=== PATIENT | female | born 1980 | race Two or more races ===

== ENCOUNTER 2019-02-12 00:14 | Emergency (ER) | payer SELFPAY ==
[~2019-02-12] VITALS: Ht 162.6 cm; Wt 130.6 kg
[2019-02-12 01:02] LABS: Basophils # (auto) 0 uL; Basophils % (auto) 0.4 % (0.0-2.0); Eosinophils # (auto) 0.2 uL; Eosinophils % (auto) 1.8 % (0.0-7.0); Hemoglobin 13.1 g/dL (12.2-16.2); Lymphocytes # (auto) 2.5 uL; Lymphocytes % (auto) 19.6 % (10.0-50.0); Mean Corpuscular Hemoglobin 28.6 pg (28.0-32.0); Mean Corpuscular Hgb Conc. 33.6 g/dL (32.0-36.0); Mean Corpuscular Volume 85.2 fL (80.0-100.0); Monocytes # (auto) 0.8 uL; Monocytes % (auto) 6.1 % (0.0-12.0); Neutrophils % (auto) 72.1 % (37.0-80.0); Nucleated Red Blood Cells % 0.1 %; Platelet Count (auto) 292 10^3/uL (140-450); Red Blood Cells 4.58 10^6/uL (4.0-5.20); White Blood Cell 12.5 10^3/uL (4.4-10.8)
[2019-02-12 01:06] LABS: Urine Bacteria FEW /hpf (None Seen); Urine Blood 2+ /uL (Negative); Urine Specific Gravity 1.009 (1.001-1.035); Urine WBC 1 /hpf (0 - 5)
[2019-02-12 01:20] LABS: Albumin 3.5 g/dL (3.4-5.0); BUN/Creatinine Ratio 11.9; Calcium 9.1 mg/dL (8.5-10.1); Potassium 3.9 mmol/L (3.5-5.1)
[2019-02-12 01:28] LABS: Bilirubin, Total 0.2 mg/dL (0.2-1.0); Total Protein 7.6 g/dL (6.4-8.2)
[2019-02-12 05:21] VITALS: BP 128/68
== END 2019-02-12 06:16 | disposition home or self-care (01) ==
LOC: ER 00:20
DX: O20.0 Threatened abortion (principal); Z90.89 Acquired absence of other organs; Z3A.11 11 weeks gestation of pregnancy
CPT/HCPCS: 36415; 76801; 76817; 80053; 81001; 84702; 85025